=== PATIENT | male | born 1985 ===

== ENCOUNTER 2016-09-03 01:14 | Emergency (ER) | payer SELFPAY ==
[2016-09-03 01:21] VITALS: BP 131/86; PULSE 95; RESP 18; TEMP 98.6; O2SAT 99
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
== END 2016-09-03 02:00 | disposition home or self-care (01) ==
LOC: H.ER 01:14
DX: F10.10 Alcohol abuse, uncomplicated (principal); M79.632 Pain in left forearm; Y04.0XXA Assault by unarmed brawl or fight, initial encounter; Y92.89 Other specified places as the place of occurrence of the external cause